=== PATIENT | female | born 1960 | race Caucasian/White ===

== ENCOUNTER → 2023-06-20 | Outpatient (CLI) | payer SELFPAY | END | disposition home or self-care (01) | LOC: LAB 16:15 → LAB SHORT 16:15 | DX: R30.0 Dysuria (principal) | CPT/HCPCS: 87086 ==

== ENCOUNTER 2024-06-12 19:55 | Observation (INO) | payer BC ==
[~2024-06-12] VITALS: Ht 167.6 cm; Wt 81.7 kg
[2024-06-12 21:18] LABS: Source, Urine Clean Catch
[2024-06-12 21:23] LABS: Appearance, Urine Clear (Clear); Bilirubin, Urine Neg (Neg); Blood, Urine Neg (Neg); Color, Urine Yellow (P-Yellow); Glucose Qualitative, Urine Neg (Neg); Ketones, Urine 2+ (Neg); Leukocyte Esterase, Urine Neg (Neg); Nitrite, Urine Neg (Neg); Protein, Urine Neg (Neg); Urobilinogen, Urine NORM (Normal)
[2024-06-12 21:28] LABS: BASOPHILS ABSOLUTE AUTO 0.12 K/mm3 (0.00-0.23); BASOPHILS PERCENT AUTO 1 % (0-2); EOSINOPHILS ABSOLUTE AUTO 0.31 K/mm3 (0.00-0.68); EOSINOPHILS PERCENT AUTO 3 % (0-6); Hematocrit 40.1 % (33.0-51.0); Hemoglobin 13.9 g/dL (11.5-16.0); IMMATURE GRAN ABSOLUTE AUTO 0.05 K/mm3 (0.00-0.10); IMMATURE GRAN PERCENT AUTO 0 % (0-1); LYMPHOCYTES ABSOLUTE AUTO 3.83 K/mm3 (0.84-5.20); LYMPHOCYTES PERCENT AUTO 33 % (21-46); MONOCYTES ABSOLUTE AUTO 0.84 K/mm3 (0.16-1.47); MONOCYTES PERCENT AUTO 7 % (4-13); Mean Corpuscular HGB 31.2 pg (26.0-34.0); Mean Corpuscular HGB Conc 34.7 g/dL (31.5-36.5); Mean Corpuscular Volume 90 fL (80-100); Mean Platelet Volume 9.5 fL (9.1-12.4); NEUTROPHILS ABSOLUTE AUTO 6.49 K/mm3 (1.96-9.15); NEUTROPHILS PERCENT AUTO 56 % (41-73); Platelet Count 347 K/mm3 (150-400); RDW Coefficient Variation 12.5 % (11.7-14.2); RDW Standard Deviation 41.1 fL (35.1-46.3); Red Blood Cell Count 4.46 M/mm3 (3.80-5.20); White Blood Cell Count 11.64 K/mm3 (4.00-11.30)
[2024-06-12 21:36] LABS: U Amphetamine Screen Not Detected; U Barbituate Screen Not Detected; U Benzodiazapine Screen Not Detected; U Buprenorphine Screen Not Detected; U Cannabinoids Screen DETECTED; U Cocaine Screen Not Detected; U Methadone Screen Not Detected; U Methamphetamine Screen Not Detected; U Opiates Screen Not Detected; U Oxycodone Screen Not Detected; U Phencyclidine Screen Not Detected
[2024-06-12 21:49] LABS: Ethanol (Alcohol), Blood, Med <3 mg/dL; Salicylate <1.7 mg/dL (2.8-20.0)
[2024-06-12] MEDS ORDERED: ATEN25 PO (21:50)
[2024-06-12] MEDS ORDERED: DIVA250ER PO (21:50)
[2024-06-12] MEDS ORDERED: VERA240ER PO (21:50)
[2024-06-12] MEDS ORDERED: GABA300 PO (21:51)
[2024-06-12] MEDS ORDERED: PANT40 PO (21:51)
[2024-06-12] MEDS ORDERED: Crestor40 MG PO (21:52)
[2024-06-12] MEDS ORDERED: ROPINIROLE HCL PO (21:52)
[2024-06-12 21:55] LABS: Alanine Aminotransfer (ALT/SGP 18 U/L (12-78); Albumin, Blood 3.8 g/dL (3.4-5.0); Albumin/Globulin Ratio 0.9 (0.8-1.8); Alk Phos 83 U/L (50-136); Anion Gap 12 mmol/L (3-11); Aspartate Aminotrans (AST/SGOT 20 U/L (12-37); Bilirubin, Total 0.5 mg/dL (0.1-1.0); Blood Urea Nitrogen 12 mg/dL (8-24); Bun/Creatinine Ratio 13.3 (12.0-20.0); CO2, Blood 23 mmol/L (21-32); Calcium, Blood 9.2 mg/dL (8.5-10.1); Chloride, Blood 109 mmol/L (98-108); Creatinine, Blood 0.91 mg/dL (0.40-1.00); Globulin, Blood 4.3 g/dL (2.2-4.0); Glomerular Filtration Rate 71 (60-); Glucose, Blood 124 mg/dL (70-99); Potassium, Blood 3.3 mmol/L (3.5-5.5); Sodium, Blood 141 mmol/L (136-145); Total Protein, Blood 8.1 g/dL (6.4-8.2)
[2024-06-12] MEDS ORDERED: DULO60 PO (21:55)
[2024-06-12] MEDS ORDERED: LEVOTHYROXINE112 M19 PO (21:55)
[2024-06-12 21:57] LABS: Acetaminophen, Random <2.0 ug/mL (10.0-30.0)
[2024-06-12 22:33] LABS: Influenza A, PCR NEGATIVE (NEGATIVE); Influenza B, PCR NEGATIVE (NEGATIVE); Resp Syncytial Virus, PCR NEGATIVE (NEGATIVE); SARS-Cov-2 (COVID-19) PCR, MMC NEGATIVE (NEGATIVE)
[2024-06-12] MEDS ORDERED: rOPINIRole HCl 1 MG Tab PO SCH (23:35)
[2024-06-13 10:40] VITALS: BP 136/80
[2024-06-13] MEDS ORDERED: PREMPRO PO (15:28)
[2024-06-13] MEDS ORDERED: SUMA25 PO (16:11)
== END 2024-06-13 23:00 | disposition home or self-care (01) ==
LOC: ER 19:55 → EOR 19:56
PROVIDERS: ADMIT Emergency Medicine
DX: F31.81 Bipolar II disorder (principal); R45.851 Suicidal ideations; I10 Essential (primary) hypertension; G43.909 Migraine, unspecified, not intractable, without status migrainosus; E78.00 Pure hypercholesterolemia, unspecified; M79.7 Fibromyalgia; Z79.890 Hormone replacement therapy; Z79.899 Other long term (current) drug therapy; Z88.0 Allergy status to penicillin; Z88.5 Allergy status to narcotic agent; Z88.2 Allergy status to sulfonamides
CPT/HCPCS: 0241U; 80053; 80320; 81003; 81025; 85025; 93005; 93010; 99285-25; A9270; G0378; G0480

== ENCOUNTER 2024-06-13 12:32 | Inpatient (IN) | payer BC ==
[~2024-06-13] VITALS: Ht 167.6 cm; Wt 81.8 kg
[~2024-06-13 12:32] MED LIST: ATEN25 PO; Crestor40 MG PO; DIVA250ER PO; DULO60 PO; GABA300 PO; LEVOTHYROXINE112 M19 PO; PANT40 PO; ROPINIROLE HCL PO; VERA240ER PO
[2024-06-13] MEDS ORDERED: Ibuprofen 600 MG Tab PO PRN (14:10)
[2024-06-13] MEDS ORDERED: Acetaminophen 325 MG TABLET PO PRN (14:10)
[2024-06-13] MEDS ORDERED: OLANZapine ODT 10 MG Tab MM PRN (14:10)
[2024-06-13] MEDS ORDERED: FLU VACC TS2024-25(6MOS UP)/PF 45 MCG/0.5 ML SYRINGE IM PRN (14:10)
[2024-06-13] MEDS ORDERED: QUEtiapine Fumarate 25 MG Tab PO PRN (14:10)
[2024-06-13] MEDS ORDERED: Aluminum Hydroxide 320MG/5ML 473 ML PO PRN (14:10)
[2024-06-13 14:59] LABS: Valproic Acid <3.0 ug/mL (50.0-100.0)
[2024-06-13] MEDS ORDERED: PREMPRO PO (15:28)
[2024-06-13] MEDS ORDERED: SUMA25 PO (16:11)
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
[2024-06-13] MEDS ORDERED: Divalproex Sodium 250 MG TABLET.DR PO SCH (21:00)
[2024-06-13] MEDS ORDERED: Gabapentin 300 MG Cap PO SCH (21:00)
[2024-06-13] MEDS ORDERED: rOPINIRole HCl 2 MG Tab PO SCH (21:00)
[2024-06-13 23:28] VITALS: BP 130/83
--- NOTE | 2024-06-14 05:39 | NUR ---
Patient is alert and oriented x 3, pleasant and cooperative with cares. She was out in the milieu until approximately 2100 when she went to bed. Sleep hours so far have been around 7.5 hours so far. No complaints of pain or discomfort. will continue close monitoring.
[2024-06-14] MEDS ORDERED: Levothyroxine Sodium 0.112 MG Tab PO SCH (06:00)
[2024-06-14] MEDS ORDERED: Pantoprazole Sodium 40 MG Tab PO SCH (06:00)
[2024-06-14 08:17] VITALS: BP 161/113
[2024-06-14] MEDS ORDERED: DULoxetine HCL 60 MG Capsule DR PO SCH (09:00)
[2024-06-14] MEDS ORDERED: Atorvastatin 10 MG Tab PO SCH (09:00)
[2024-06-14] MEDS ORDERED: Verapamil HCL 240 MG TABCR PO SCH (09:00)
[2024-06-14] MEDS ORDERED: Multivitamins 1 Tab PO SCH (09:00)
[2024-06-14 09:31] LABS: CHOL/HDL RATIO 6.4; Cholesterol 345 mg/dL (50-200); HDL Cholesterol 54 mg/dL (>39); LDL/HDL RATIO 4.6; Low Density Lipoprotein Chol 250 mg/dL (0-110); Triglycerides 207 mg/dL (30-160); Very Low Density Lipoprot Chol 41 mg/dL (6-32)
[2024-06-14 09:46] VITALS: BP 129/82
[2024-06-14] MEDS ORDERED: Atenolol 50 MG Tab PO SCH (11:00)
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
[2024-06-14 21:30] VITALS: BP 143/85
--- NOTE | 2024-06-15 04:08 | NUR ---
Patient was out in milieu with peers for most of the evening working on a puzzle. No SI,HI or AVH noted on this RN's assessment. Sleep time so far has been approximately 6.5 hours. will continue close monitoring.
[2024-06-15 08:17] VITALS: BP 149/87
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
--- NOTE | 2024-06-15 18:24 | NUR ---
PT HAS BEEN VERY ACTIVE IN THE PT [place], SHE HAS PARTICIPATED IN GROUPS, SHE IS PLEASANT AND COOPEERATIVE WITH CARE.
[2024-06-15 20:05] VITALS: BP 149/75
--- NOTE | 2024-06-16 04:16 | NUR ---
PATIENT WAS IN [place] WORKING ON PUZZLE WITH STAFF AND PEERS AT THE BEGINNING OF THE SHIFT. SHE WAS PLEASANT AND COOPERATIVE WITH CARES, INCLUDING EVENING MEDICATIONS. SHE WENT TO BED EARLY AND WAS NOTED TO BE RESTING QUIETLY WITH EYES CLOSED AND RESPIRATIONS CONFIRMED. SHE HAD NO S/SX OF SUICIDAL IDEATION OR SELF HARM THIS SHIFT.
[2024-06-16 08:01] VITALS: BP 143/80
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
--- NOTE | 2024-06-16 17:03 | NUR ---
PATIENT HAS BEEN IN A HAPPY AND CALM MOOD. HAS INTERACTED WITH OTHERS THOUGH OUT THE DAY. STATES SHE IS HAPPY AND FEELS SAFE. HAS HAD NO CONTACT WITH ANYONE OUTSIDE OR BY PHONE. NO ISSUES TODAY.
[2024-06-16 20:49] VITALS: BP 124/86
--- NOTE | 2024-06-17 04:20 | NUR ---
PATIENT WAS AWAKE AND INTERACTING IN THE [place] AT THE BEGINNING OF THE SHIFT. SHE WORKED ON A PUZZLE AND JOINED PEERS IN WATCHING TELEVISION. SHE WAS PLEASANT AND COOPERATIVE WITH CARES. SHE WENT TO BED ABOUT 2200, AFTER TAKING EVENING MEDICATIONS, AND WAS NOTED TO BE RESTING QUIETLY WITH EYES CLOSED AND RESPIRATIONS CONFIRMED THROUGHOUT THE REMAINDER OF THE SHIFT. SHE HAD NO S/SX SUICIDAL IDEATION AND NO SELF HARM THIS SHIFT.
[2024-06-17 08:12] VITALS: BP 119/72
[2024-06-17 09:26] LABS: CHOL/HDL RATIO 4.9; Cholesterol 266 mg/dL (50-200); HDL Cholesterol 54 mg/dL (>39); LDL/HDL RATIO 3.1; Low Density Lipoprotein Chol 167 mg/dL (0-110); Triglycerides 226 mg/dL (30-160); Very Low Density Lipoprot Chol 45 mg/dL (6-32)
[2024-06-17] MEDS ORDERED: ATOR10 PO (12:04)
--- NOTE | 2024-06-17 13:46 | NUR ---
DISCHARGE NOTE Pt A&O, calm, cooperative, good eye contact. Pt's mood is "great," affect is euthymic. Pt denies SI, HI, and hallucinations. No report of pain today. Pt denied depression, but endorsed anxiety "3-4"/10w RT housing situation. Pt was informed that she was accepted by a senior living and would be going there today. [employer] went through d/c instructions with pt and gave education info on MDD, SI, and atorvastatin. Upon completion of the d/c instructions, pt was given access to her belongings and phone. A taxi has been arranged to take pt to the senior living. Will continue to monitor until transportation arrives.
--- NOTE | 2024-06-17 14:02 | NUR ---
D/C NOTE Pt was escorted out of [facility] at 1401 and left via taxi.
== END 2024-06-17 14:01 | disposition home or self-care (01) | DRG 885 ==
LOC: BHU 12:32
PROVIDERS: ADMIT Student in an Organized Health Care Education/Training Program
DX: F31.81 Bipolar II disorder (principal); R45.851 Suicidal ideations; Z79.899 Other long term (current) drug therapy; G43.909 Migraine, unspecified, not intractable, without status migrainosus; M79.7 Fibromyalgia; I10 Essential (primary) hypertension; E78.00 Pure hypercholesterolemia, unspecified; Z88.0 Allergy status to penicillin; Z88.5 Allergy status to narcotic agent; Z88.2 Allergy status to sulfonamides; Z79.890 Hormone replacement therapy
CPT/HCPCS: 36415; 80061; 80164; 82140; 83036; 86592; A9270

== ENCOUNTER 2025-01-03 15:17 | Emergency (ER) | payer BC, OTHER ==
[~2025-01-03] VITALS: Ht 167.6 cm; Wt 83.9 kg
[~2025-01-03 15:17] MED LIST changes: +ATOR10 PO; +PREMPRO PO; +SUMA25 PO
[2025-01-03 15:49] VITALS: BP 129/88
[2025-01-03 16:25] LABS: BASOPHILS ABSOLUTE AUTO 0.09 K/mm3 (0.00-0.23); BASOPHILS PERCENT AUTO 1 % (0-2); EOSINOPHILS ABSOLUTE AUTO 0.42 K/mm3 (0.00-0.68); EOSINOPHILS PERCENT AUTO 4 % (0-6); Hematocrit 38.2 % (33.0-51.0); IMMATURE GRAN ABSOLUTE AUTO 0.04 K/mm3 (0.00-0.10); IMMATURE GRAN PERCENT AUTO 0 % (0-1); LYMPHOCYTES ABSOLUTE AUTO 3.33 K/mm3 (0.84-5.20); LYMPHOCYTES PERCENT AUTO 35 % (21-46); MONOCYTES ABSOLUTE AUTO 0.72 K/mm3 (0.16-1.47); MONOCYTES PERCENT AUTO 8 % (4-13); Mean Corpuscular HGB 31.9 pg (26.0-34.0); Mean Corpuscular Volume 94 fL (80-100); Mean Platelet Volume 10.2 fL (9.1-12.4); NEUTROPHILS ABSOLUTE AUTO 4.93 K/mm3 (1.96-9.15); NEUTROPHILS PERCENT AUTO 52 % (41-73); Platelet Count 290 K/mm3 (150-400); RDW Coefficient Variation 12.5 % (11.7-14.2); Red Blood Cell Count 4.08 M/mm3 (3.80-5.20); White Blood Cell Count 9.53 K/mm3 (4.00-11.30)
[2025-01-03 16:47] LABS: Albumin, Blood 3.6 g/dL (3.4-5.0); Albumin/Globulin Ratio 0.9 (0.8-1.8); Bilirubin, Total 0.3 mg/dL (0.1-1.0); Calcium, Blood 9.6 mg/dL (8.5-10.1); Creatinine, Blood 0.95 mg/dL (0.40-1.00); Globulin, Blood 3.8 g/dL (2.2-4.0); Potassium, Blood 3.8 mmol/L (3.5-5.5); Total Protein, Blood 7.4 g/dL (6.4-8.2)
== END 2025-01-03 17:52 ==
LOC: ER 15:17
PROVIDERS: Student in an Organized Health Care Education/Training Program
DX: R05.9 Cough, unspecified (principal); R68.83 Chills (without fever); J02.9 Acute pharyngitis, unspecified; Z53.29 Procedure and treatment not carried out because of patient's decision for other reasons
CPT/HCPCS: 71046; 80053; 85025